=== PATIENT | male | born 1950 | race Caucasian/White ===

== ENCOUNTER 2021-02-24 16:37 | Emergency (ER) | payer MEDICARE, SELFPAY ==
[2021-02-24 17:32] VITALS: BP 145/72; PULSE 101; RESP 18; O2SAT 97; BMI 21.8
--- NOTE | 2021-02-24 18:02 | HMH.EDUTC ---
[facility] [place] Clinical Impression: COPD exacerbation, Bronchitis Disposition: Home, Self-Care Condition on Discharge: Good Instructions: Chronic Obstructive Pulmonary Disease Additional Instructions: Drink plenty of fluids. Take tylenol or ibuprofen for pain or fever. Take the medications as directed. Follow up with your regular doctor. GO TO THE ER FOR ANY WORSENING SYMPTOMS Prescriptions: Albuterol Sulfate [Albuterol Sulfate Hfa] 2 puffs IH Q6HP PRN 30 Days #1 [email or web address] PRN Reason: Shortness Of Breath Transmission Status: Received by [facility] Amoxicillin/Potassium Clav [Augmentin 875-125 Tablet] 1 tab PO Q12H 10 Days #20 tab Transmission Status: Received by [facility] predniSONE [Deltasone 10mg tablet] 10 mg PO DAILY 9 Days #21 tab Transmission Status: Received by [facility] Benzonatate [Tessalon Perle 100mg Cap] 100 mg PO TIDP PRN #30 cap PRN Reason: Cough Transmission Status: Received by [facility] Referrals: Nicolas Licea MD [Primary Care Provider] - Time of Disposition: 18:17 Medical Decision Making - Medical Records Medical records reviewed: No: I reviewed the patient's medical records. - Saqib Inquiry Pt receiving controlled substance: No Vital Signs: 02/24/21 17:32 02/24/21 18:32 Temperature 97.9 F Temperature Source Tympanic Pulse Rate 90 Pulse Rate [Right] 101 H Respiratory Rate 18 19 Blood Pressure 139/77 Blood Pressure [Right Arm] 145/72 H Blood Pressure Mean [Right Arm] 96 Blood Pressure Source [Right Arm] Automatic Cuff Blood Pressure Position [Right Arm] Sitting 02 Sat by Pulse Oximetry 97 Oxygen Delivery Method Room Air [facility] [place] - General Stated complaint: cough Time Seen by Provider: 02/24/21 18:03 Mode of Arrival: Ambulatory Source of Information: Patient Limitations: No Limitations Description of Symptoms (Recalled from Triage Doc. by RN): pt c/o a cough that started last night. productive cough with thick clear sputum. pt has copd and has an old inhaler that is about empty. HEENT Symptoms (Recalled from RN notes): No Resp Symptoms (Recalled from RN notes): Yes (productive cough with clear sputum) Skin Symptoms (Recalled from RN notes): No MS Symptoms (Recalled from RN notes): No Functional Status (Recalled from RN notes): na - History of Present Illness Provider Complaint: He state that since last night he has had a worsening cough and chest congestion. He denies any fever/chills. He states that he has a history of copd and he wanted to try to get ahead of it before he got really sick. He denies any covid exposure. - Related Data Home Medications Medication Instructions Recorded Confirmed aspirin 325 mg tablet 325 mg PO ONCE tab 10/25/17 04/19/19 lisinopriL [Prinivil 20mg Tablet] 20 mg PO DAILY 04/19/19 04/19/19 Previous Rx's Medication Instructions Recorded Albuterol Sulfate [Albuterol 2 puffs IH Q6HP PRN 30 Days #1 02/24/21 Sulfate Hfa] hfa.aer.ad Amoxicillin/Potassium Clav 1 tab PO Q12H 10 Days #20 tab 02/24/21 [Augmentin 875-125 Tablet] Benzonatate [Tessalon Perle 100mg 100 mg PO TIDP PRN #30 cap 02/24/21 Cap] predniSONE [Deltasone 10mg tablet] 10 mg PO DAILY 9 Days #21 tab 02/24/21 Allergies Allergy/AdvReac Type Severity Reaction Status Date / Time No Known Allergies Allergy Verified 02/24/21 17:43 - Worker's Comp Is this a Worker's Comp case?: No [facility] History - Hepatitis A Screen Drug use history?: No High risk sexual behaviors?: No History of sexually transmitted infection?: No Currently employed?: No Childcare worker?: No Do you have indoor plumbing?: Yes Do you have electricity?: Yes Attestation statement:: This patient has been screened for Hepatitis A risk factors. I have reviewed the patient's past medical history: Yes Medical History: Reports:: Chronic Obstructive Pulmonary Disease (COPD), Cerebrovascular Accident, Hypertension Comment:
[2021-02-24 18:32] VITALS: BP 139/77; PULSE 90; RESP 19; TEMP 36.6
== END 2021-02-24 18:40 | disposition home or self-care (01) ==
PROVIDERS: Emergency Provider Nurse Practitioner Family; PCP Family Medicine
DX: J44.1 Chronic obstructive pulmonary disease with (acute) exacerbation (principal); J44.0 Chronic obstructive pulmonary disease with (acute) lower respiratory infection; I10 Essential (primary) hypertension; G20 Parkinson's disease; Z86.73 Personal history of transient ischemic attack (TIA), and cerebral infarction without residual deficits; Z79.899 Other long term (current) drug therapy
CPT/HCPCS: G0463; 99202